=== PATIENT | male | born 1975 | race African-American/Black ===

== ENCOUNTER 2017-09-10 10:01 | Emergency (ER) | payer SELFPAY ==
[~2017-09-10] VITALS: Ht 188 cm; Wt 107.0 kg
[~2017-09-10 10:01] MED LIST: CEPH500C3 PO; LORTA5 PO
[2017-09-10 10:13] VITALS: BP 163/73; PULSE 73; RESP 18; TEMP 98.2; O2SAT 98
--- NOTE | 2017-09-10 10:42 | PD ---
HPI Chief Complaint: Pain: Acute or Chronic Time Seen by Provider: 10:27 Travel History International Travel<30 days: No Contact w/Intl Traveler<30days: No Traveled to known affect area: No History of Present Illness HPI 42-year-old male presents to the emergency room for evaluation of left lower back pain for the past 3-4 weeks that worsened last night without trauma or injury. Patient does not know what first brought his pain on. States last night it significantly worsened while he was lying in bed. Pain is worsened with any range of motion or movement of the back. He denies radiation of symptoms. He has not taken anything for symptoms. Denies history of back problems. No upper or lower extremity paresthesias, saddle anesthesia, loss of bowel or bladder control. He denies fever, chills, weight loss, night sweats, history of cancer, or IV drug use. PFSH Past Medical History Asthma: No Autoimmune Disease: No Heart Rhythm Problems: No Cancer: No Cardiovascular Problems: No High Cholesterol: No Chemotherapy: No Chest Pain: No Congestive Heart Failure: No COPD: No Endocrine: No Genitourinary: No Immune Disorder: No Musculoskeletal: No Neurologic: No Psychiatric: No Reproductive: No Respiratory: No Radiation Therapy: No Sleep Apnea: No Social History Tobacco Use: Yes Substance Use: Yes Allergies-Medications (Allergen,Severity, Reaction): Coded Allergies: No Known Allergies (Unverified Adverse Reaction, Unknown, 09/10/17) Reported Meds & Prescriptions Reported Meds & Active Scripts Active Prednisone 20 Mg Tab 40 Mg PO DAILY Take 40 mg (2 tablets) daily for 5 days Ibuprofen 600 Mg Tab 600 Mg PO Q8H PRN Robaxin (Methocarbamol) 750 Mg Tab 750 Mg PO Q8HR Review of Systems Except as stated in HPI: all other systems reviewed are Neg Physical Exam Narrative GENERAL: Well-nourished, well-developed male in no acute distress. Afebrile. Ambulatory. SKIN: Focused skin assessment warm/dry. HEAD: Normocephalic. EYES: No scleral icterus. No injection or drainage. NECK: Supple, trachea midline. No JVD or lymphadenopathy. CARDIOVASCULAR: Regular rate and rhythm without murmurs, gallops, or rubs. RESPIRATORY: Breath sounds equal bilaterally. No accessory muscle use. BACK: No CVA tenderness. No rash. No point tenderness on palpation of the spine. 1+ Achilles and patellar reflexes are equal bilaterally. Tenderness to palpation of the left paraspinous musculature of the lower lumbar spine. Negative straight leg raise bilaterally. Data Data Last Documented VS Vital Signs Date Time Temp Pulse Resp B/P (MAP) Pulse Ox O2 Delivery O2 Flow Rate FiO2 09/10/17 10:13 98.2 73 18 163/73 (103) 98 Orders Orders Spine, Lumbar - Ltd (Ap & Lat) (09/10/17 ) Ketorolac Inj (Toradol Inj) (09/10/17 10:45) Orphenadrine Inj (Norflex Inj) (09/10/17 10:45) Ed Discharge Order (09/10/17 11:29) [facility] Medical Decision Making Medical Screen Exam Complete: Yes Emergency Medical Condition: Yes Medical Record Reviewed: Yes Differential Diagnosis Spasm, strain, sprain, cancer, fracture, herniated disc Narrative Course 42-year-old male presents to the emergency room for evaluation of left lower back pain that has been ongoing for the past 3-4 weeks but worsened last night. Pain started while lying in bed; no trauma or injury. Localized to the left lower lumbar paraspinous musculature. No red flag symptoms. No midline tenderness. No CVA tenderness. No focal neurological deficits. Negative straight leg raise bilaterally. Patient is ambulatory with antalgic gait. Vital signs stable. Given acute onset and severity of pain, x-rays were obtained. X-rays show vacuum phenomenon of L5-S1. I suspect probable degenerative disc disease. Patient was given Toradol and Norflex in the emergency room. Discharge with prescriptions for ibuprofen, Robaxin, and prednisone. Told to follow-up with the primary care physician for outpatient MRI. Told to return for worsening symptoms. He understands and agrees to plan. Diagnosis Primary Impression: Degenerative disc disease, lumbar Referrals: Primary Care Physician Additional Instructions: Rest and drink plenty of fluids. Prednisone as directed, until gone. Take Robaxin as directed, as needed for pain. Take ibuprofen with food as directed, as needed for pain. Apply ice to the affected area for 20 minutes at a time, as needed for pain and swelling. Follow-up with a primary care physician for MRI of your spine. Return to the emergency room for worsening symptoms. Scripts Prednisone (Prednisone) 20 Mg Tab 40 MG PO DAILY, #10 TAB 0 Refills Take 40 mg (2 tablets) daily for 5 days Prov: Kocisko,Ham J. MD 09/10/17 Ibuprofen (Ibuprofen) 600 Mg Tab 600 MG PO Q8H Y for PAIN, #15 TAB 0 Refills Prov: Ham Silverio MD 09/10/17 Methocarbamol (Robaxin) 750 Mg Tab 750 MG PO Q8HR for Muscle Spasm, #15 TAB 0 Refills Prov: Ham Silverio MD 09/10/17 Disposition: 01 DISCHARGE HOME Condition: Stable Camelia Bustos Sep 10, 2017 10:42
[2017-09-10] MEDS ORDERED: ORPHENADRINE INJ 60 MG/2 ML AMP IM ONE (10:45)
[2017-09-10] MEDS ORDERED: KETOROLAC TROMETHAMINE 60 MG/2 ML (IM) VIAL IM ONE (10:45)
--- NOTE | 2017-09-10 11:25 | RADRPT ---
EXAM DATE/TIME: 09/10/2017 11:07 [facility] COMPARISON: CT ABDOMEN & PELVIS W CONTRAST, October 16, 2014, 11:39. INDICATIONS : Low back pain for 2 weeks, pain became very severe this morning, denies trauma MEDICAL HISTORY : None. SURGICAL HISTORY : None. ENCOUNTER: Initial ACUITY: 2 weeks PAIN SCORE: 10/10 LOCATION: Bilateral lumbar FINDINGS: Two view examination was performed. There are five non-rib bearing vertebral bodies. The vertebral bodies are in normal alignment without evidence of subluxation or scoliosis. The disc spaces are angelica ntained. The pedicles are intact. Bony mineralization is normal. No fracture is identified. CONCLUSION: Unremarkable limited examination of the lumbar spine. Continued vacuum phenomenon at L5-S1 Agapito Pan MD on September 10, 2017 at 11:23 Board Certified Radiologist. This report was verified electronically.
[2017-09-10] MEDS ORDERED: IBUP-232 PO (11:28)
[2017-09-10] MEDS ORDERED: PRED20 PO (11:28)
[2017-09-10] MEDS ORDERED: ROBA750T PO (11:28)
== END 2017-09-10 11:40 | disposition home or self-care (01) ==
LOC: NEPK 10:01
DX: M51.36 Other intervertebral disc degeneration, lumbar region (principal); Z72.0 Tobacco use
CPT/HCPCS: 72100; 96372; 99283; J1885; J2360